=== PATIENT | male | born 1945 | race Caucasian/White ===

== ENCOUNTER 2017-02-22 11:32 | Emergency (ER) | payer BC ==
[~2017-02-22] VITALS: Ht 180.3 cm; Wt 118.0 kg
[~2017-02-22 11:32] MED LIST: ATIVAN1 MG PO; CELLCEPT250 MG PO; PREDNISONE5 MG PO; PRILOSEC20 MG PO; SANDIMMUNE100 MG PO; SANDIMMUNE25 MG PO; ULTRAM50 MG PO; ZESTRIL10 MG PO; ZESTRIL20 MG PO; ZOLOFT100 MG PO
[2017-02-22 12:06] LABS: BASOPHIL (%) 0.5 % (0-1); BASOPHIL COUNT 0.1 K/uL (0-0.1); EOSINOPHIL (%) 0.2 % (0-5); HEMATOCRIT 41.9 % (38.0-50.0); LYMPHOCYTE (%) 19.2 % (15-42); LYMPHOCYTE COUNT 2.1 K/uL (1.0-2.8); MCH 29.7 PG (29.0-34.0); MCV 95.7 FL (86-99); MONOCYTE (%) 6.4 % (3-12); MONOCYTE COUNT 0.7 K/uL (0-0.8); NEUTROPHIL (%) 72.7 % (45-76); NEUTROPHIL COUNT 7.8 K/uL (1.8-6.4); NRBC (%) 0.4 /100 WBC (0-0); PLATELET COUNT 198 K/uL (156-360); RBC DIS.WIDTH-CV 15.9 % (11.8-14.6); RBC DIS.WIDTH-SD 55.7 % (39-53); RED BLOOD COUNT 4.38 M/uL (4.00-5.50); WHITE BLOOD COUNT 10.7 K/uL (4.1-10.2)
[2017-02-22 12:09] LABS: ALBUMIN 3.2 g/dL (3.2-4.8); INTER. NORMALIZED RATIO 1.1
[2017-02-22 12:10] LABS: CHLORIDE 104 mEq/L (99-109); POTASSIUM 4.5 mEq/L (3.7-5.4); SODIUM 139 mEq/L (136-147)
[2017-02-22 12:11] LABS: PTT 55.8 SEC (25-37)
[2017-02-22 12:12] LABS: GLUCOSE 80 mg/dL (70-99); TOTAL PROTEIN 6.4 g/dL (6.4-8.3)
[2017-02-22 12:14] LABS: TOTAL BILIRUBIN 0.9 mg/dL (0.0-1.0)
[2017-02-22 12:15] LABS: ALKALINE PHOSPHATASE 60 IU/L (3-129)
[2017-02-22 12:16] LABS: CREATININE 3.4 mg/dL (0.6-1.3); GFR ESTIMATE (CALCULATED) 19 mL/min/ (58.99-99999)
[2017-02-22 12:19] LABS: LIPASE 26 U/L (1.0-51.0)
[2017-02-22 12:22] LABS: TROP-I INTERPRETATION NEGATIVE; TROPONIN-I 0.04 ng/mL (0.0-0.30)
[2017-02-22 12:24] LABS: ALT (GPT) 70 IU/L (3-49); AST (GOT) 212 IU/L (2-34); DIRECT BILIRUBIN 0.4 mg/dL (0.0-0.3)
[2017-02-22 12:25] LABS: UREA NITROGEN (BUN) 67 mg/dL (9-23)
[2017-02-22 16:09] VITALS: BP 00/00
== END 2017-02-22 12:25 ==
LOC: EME 11:32
PROVIDERS: Emergency Medicine
DX: I46.9 Cardiac arrest, cause unspecified (principal); R06.03 Acute respiratory distress; Z66 Do not resuscitate; Z94.1 Heart transplant status; E78.5 Hyperlipidemia, unspecified; I10 Essential (primary) hypertension; I25.2 Old myocardial infarction; Z86.73 Personal history of transient ischemic attack (TIA), and cerebral infarction without residual deficits; K21.9 Gastro-esophageal reflux disease without esophagitis; F32.9 Major depressive disorder, single episode, unspecified; Z88.6 Allergy status to analgesic agent
CPT/HCPCS: 36600; 80047; 80053; 81003; 82248; 82803; 83605; 83690; 84484; 85025; 85610; 85730; 87040; 93005; 99281; 99285